=== PATIENT | female | born 1945 | race Caucasian/White ===

== ENCOUNTER → 2018-01-12 | Outpatient (CLI) | payer MEDICARE, OTHER ==
[~2018-01-12] MED LIST: ADVAI250I PO; ALBU1AER INH; AMLO2.5T PO; CARV12.5 PO; CLOP75TA PO; FAMO20 PO; FERR324T4 PO; KLOR20TA6 PO; MAXZ25 PO; OCUVCAP2 PO; OXYC1SOL5 PO; POTA-267 PO; PREM1.25 PO; REST7.5C PO; RIVA10 PO; VITA-13 PO; VITA100017 PO; Z.0.COMMODE-3:1; Z.0.WALKERFRONT
--- NOTE | 2018-01-14 09:59 | RSPPFT ---
DATE OF PROCEDURE: 01/12/18 COMMENTS: Spirometry shows FVC of 2.7 at 93% of predicted, FEV1 of 1.8 at 83%, FEV1/FVC ratio is decreased. Flow is decreased at FEF 25, FEF 50, FEF 75 and FEF 25-75. There is no response after bronchodilator treatment. Lung volumes show residual volume is increased. TLC is normal. Diffusion capacity is normal. Flow volume loop indicates an obstructive pattern. IMPRESSION: 1. Mild obstructive lung disease. 2. No response after bronchodilator treatment. 3. Lung volumes show mild hyperinflation.
== END ==
LOC: HRSP 09:02
PROVIDERS: ATTEND Internal Medicine Interventional Cardiology
DX: R06.02 Shortness of breath (principal)
CPT/HCPCS: 36600; 82805; 94060; 94726; 94729